=== PATIENT | male | born 1970 | race Caucasian/White ===

== ENCOUNTER → 2017-04-04 | Outpatient (CLI) | payer BC, OTHER | END | disposition home or self-care (01) | LOC: C.LABMFLN 09:23 | PROVIDERS: ATTEND Family Medicine | DX: J02.9 Acute pharyngitis, unspecified (principal) ==

== ENCOUNTER → 2017-04-24 | Outpatient (CLI) | payer BC ==
--- NOTE | 2017-04-24 17:58 | Exercise Stress Test Report ---
Exercise Stress Test Report Exercise Stress Test Report Date of Service: 04/24/2017 Exercise Stress Test Report Procedure: Exercise stress ECG Indications: Chest pain Ordering physician: Dr. Vicente Consent: Informed written consent was obtained. Protocol: Standard Richy Procedural details: Resting ECG demonstrated sinus rhythm at 66 bpm. Exercise ECG demonstrated no significant ST changes. No arrhythmia. There was no chest pain reported. Maximum heart rate was 148, representing 85% maximum predicted heart rate. Resting blood pressure was 99/66mmHg, with a maximum of 163/66 mmHg. Patient exercised 10 minutes and 2 seconds on standard Richy protocol, achieving 11.8 METS. Exercise was terminated due to fatigue. Impression: 1. Negative exercise ECG for ischemia at 85% MPHR. 2. Appropriate blood pressure response to exercise. 3. No arrhythmia. 4. No chest pain. 5. Good exercise tolerance.
== END | disposition home or self-care (01) ==
LOC: C.CPL 10:25
PROVIDERS: ATTEND Family Medicine
DX: R07.89 Other chest pain (principal)

== ENCOUNTER 2017-07-04 20:31 | Emergency (ER) | payer BC ==
[~2017-07-04] VITALS: Ht 172.7 cm; Wt 87.5 kg
[2017-07-04 20:40] VITALS: TEMP 36.6; Ht 172.7 cm; Wt 87.5 kg
--- NOTE | 2017-07-04 21:42 | DIAGNOSTIC IMAGING REPORT ---
HEAD WITHOUT CONTRAST (CT) CT DOSE: 788.63 mGycm HISTORY: Mental status change CHI w/ LOC TECHNIQUE: Multiaxial CT images of the head were performed without the use of intravenous contrast. A dose lowering technique was utilized adhering to the principles of ALARA. Comparison: None. Findings: The paranasal sinuses and mastoid air cells are clear. The calvarium and skull base are intact. The ventricles and sulci are within normal limits. There is no mass, hematoma, midline shift, or acute infarct. Impression: No acute intracranial abnormality. The above report was generated using voice recognition software. It may contain grammatical, syntax or spelling errors. Electronically signed by: Michael Domínguez M.D. 07/04/2017 9:41 PM Dictated Date/Time: 07/04/2017 9:40 PM
[2017-07-04 22:15] VITALS: BP 126/71; PULSE 70; O2SAT 95
--- NOTE | 2017-07-04 22:45 | EMERGENCY ROOM VISIT NOTE ---
History First contact with patient: 21:11 Chief Complaint: FALL Stated Complaint: FELL,GOT KNOCKED OUT History of Present Illness The patient is a 46 year old male who presents to the Emergency Room with complaints of injuries sustained after he slipped and fell while walking out of his garage. The patient and his were using a wheel [place] to move a generator they just purchased. The patient's had walked inside as the patient was walking out of the back of the garage. The patient reports slipping on the steps and falling, landing on his right buttock/lower back region, and hitting his head. The patient reports a loss of consciousness. The reports that he walked into the house and did not appear in any acute distress, but then started to ask what happened and what they did tonight. The reports that he asked this question several times before she thought the patient needed evaluation of his injuries. The patient now can recall everything that happened. The also reports that he is now back to normal. The patient denies any headache, nausea, blurred vision, neck pain or general back pain. He complains of pain over the right posterior pelvic/buttock region. He denies any significant pain with ambulation. He denies any paresthesias or numbness of the right lower extremity. He denies any shortness of breath, abdominal pain or other extremity injuries except for mild shoulder pain, although he reports that he can completely move the shoulder without significant discomfort. The patient denies any prior history of concussions. He rates his overall discomfort a 5 out of 10. Review of Systems 10 system review was performed and was negative except for pertinent positives and negatives as indicated in history of present illness Past Medical/Surgical History Medical Problems: (1) GERD (gastroesophageal reflux disease) (2) Hyperlipidemia, Unspecified Surgical Problems: (1) No history of previous surgery Family History FH: hypertension Social History Smoking Status: Never Smoker Alcohol Use: occasionally Marital Status: Housing Status: lives with family Occupation Status: employed Physical Exam Vital Signs Date Time Temp Pulse Resp B/P (MAP) Pulse Ox O2 Delivery O2 Flow Rate FiO2 07/04/17 22:15 70 18 126/71 95 07/04/17 20:40 36.6 82 18 120/78 95 Room Air Physical Exam CONSTITUTIONAL: Healthy and well nourished. Alert and oriented X 3 with positive affect. GCS 15. HEENT: Normocephalic, atraumatic. No scalp hematomas or lacerations. Pupils equal, round and reactive. No subconjunctival hemorrhage, epistaxis, hemotympanum, raccoon's eyes or Huang sign. NECK: Full active range of motion without discomfort. RESPIRATORY: Clear to auscultation bilaterally with no wheezing, crackles, rhonchi or stridor. CARDIOVASCULAR: Regular rate and rhythm with no murmurs, rubs or gallops. GASTROINTESTINAL: Bowel sounds present in all quadrants. Soft and nontender to palpation. MUSCULOSKELETAL: Examination shows minimal tenderness to palpation over the right shoulder region without any evidence for soft tissue edema, ecchymosis, abrasions or lacerations. The patient exhibits full active range of motion of the right shoulder without discomfort. Examination also shows minimal erythema to the right posterior pelvic region. He has no focal tenderness to palpation through the central lumbar spine, paraspinous muscles or SI joints. Pelvis stable with rock. Negative logroll of the right hip. Patient has no other tenderness to palpation through the central thoracolumbar spine or ribs. Distal pulses are intact. INTEGUMENTARY: No rash or other significant dermatologic conditions noted. NEUROLOGIC: No focal neurologic deficits noted. Normal finger to nose test. Negative pronator drift. No ataxia with ambulation. Medical Decision & Procedures ER Provider Diagnostic Interpretation: Noncontrast CT of the head does not show any evidence for intracranial bleed or skull fracture. Radiologist report is as follows: HEAD WITHOUT CONTRAST (CT) CT DOSE: 788.63 mGycm HISTORY: Mental status change CHI w/ LOC TECHNIQUE: Multiaxial CT images of the head were performed without the use of intravenous contrast. A dose lowering technique was utilized adhering to the principles of ALARA. Comparison: None. Findings: The paranasal sinuses and mastoid air cells are clear. The calvarium and skull base are intact. The ventricles and sulci are within normal limits. There is no mass, hematoma, midline shift, or acute infarct. Impression: No acute intracranial abnormality. ED Course Patient history and physical exam were performed. Nurse's notes were reviewed. Vital signs were reviewed and were normal. The patient's neurologic exam was normal. The patient was engaged in conversation with appropriate answers. The patient's reports that he is also back to normal without symptoms that he had at home. Because the patient did have a loss of consciousness, I did suggest a head CT scan which was normal. The patient has no other significant physical exam findings. He was encouraged to rest and avoid strenuous activities. An educational concussion handout was provided. He was encouraged to take ibuprofen or Tylenol as needed for pain. Intermittent happy occasionally place to areas of discomfort. He was instructed to follow-up with his family doctor as needed for any persistent concussion symptoms or back/ pelvic pain. He was instructed to seek further emergent reevaluation for any progressively worsening concussion symptoms. Both the patient and were happy with plan of care, voiced understanding of all discharge instructions, and the patient denied any significant pain at the conclusion of my exam. Medical Decision Head Trauma GCS Score: 15 Medication Reconcilliation Current Medication List: was personally reviewed by me Blood Pressure Screening Patient's blood pressure: Normal blood pressure Impression Primary Impression: Concussion with loss of consciousness Additional Impressions: Contusion of right shoulder Back contusion Fall from slip, trip, or stumble Departure Information Referrals Chace Vicente M.D. (PCP) Patient Instructions My [facility] Problem Qualifiers Primary Impression: Concussion with loss of consciousness Encounter type: initial encounter Qualified Codes: S06.0X9A - Concussion with loss of consciousness of unspecified duration, initial encounter Additional Impressions: Contusion of right shoulder Encounter type: initial encounter Qualified Codes: S40.011A - Contusion of right shoulder, initial encounter Back contusion Encounter type: initial encounter Laterality: right Qualified Codes: S20.221A - Contusion of right back wall of thorax, initial encounter Fall from slip, trip, or stumble Encounter type: initial encounter Qualified Codes: W01.0XXA - Fall on same level from slipping, tripping and stumbling without subsequent striking against object, initial encounter
== END 2017-07-04 22:15 | disposition home or self-care (01) ==
LOC: C.EDB 20:32 → C.EDC 22:15
DX: S06.0X9A Concussion with loss of consciousness of unspecified duration, initial encounter (principal); S40.011A Contusion of right shoulder, initial encounter; S20.221A Contusion of right back wall of thorax, initial encounter; W01.0XXA Fall on same level from slipping, tripping and stumbling without subsequent striking against object, initial encounter; Y93.89 Activity, other specified; Y92.008 Other place in unspecified non-institutional (private) residence as the place of occurrence of the external cause; K21.9 Gastro-esophageal reflux disease without esophagitis; E78.5 Hyperlipidemia, unspecified; Z82.49 Family history of ischemic heart disease and other diseases of the circulatory system

== ENCOUNTER → 2017-11-06 | Day surgery (SDC) | payer BC ==
[2017-10-29 08:09] VITALS: Ht 172.7 cm; Wt 86.8 kg
[~2017-11-06] VITALS: Ht 172.7 cm; Wt 86.8 kg
[~2017-11-06] MED LIST: ASPITAB71 PO; DICL-201 PO; EPP3/2 IM; OMEP40CA41 PO; SODIUM CHLORIDE 0.9% 500ML 500 ML IV ONE
[2017-11-06 13:13] VITALS: TEMP 36.9
--- NOTE | 2017-11-06 13:28 | Endo History and Physical ---
History & Physical Date of Service: Nov 06, 2017. Chief Complaint: Chronic GERD, dry cough Referring Physician: Dr. Chace Vicente History of Present Illness 46 yo CM who presents for EGD secondary to GERD and dry cough. Past Surgical History Hx Cardiac Surgery: No Hx Internal Defibrillator: No Hx Pacemaker: No Hx Abdominal Surgery: No Hx of Implantable Prosthesis: No Hx Post-Op Nausea and Vomiting: No Hx Cancer Surgery: No Hx Thoracic Surgery: No Hx Orthopedic: No Hx Urinary Tract Surgery: No Family History None Social History Smoking Status: Never Smoker Hx Substance Use: No Hx Alcohol Use: Yes (OCCASIONAL) Allergies Coded Allergies: BEE STING (Verified Allergy, Unknown, RASH AND/OR SWELLING, 10/29/17) Meloxicam (Verified Allergy, Unknown, "EXTREMITIES GOT HOT", 10/29/17) Uncoded Allergies: METAL JEWELRY (Adverse Reaction, Unknown, RASH, 10/29/17) Current Medications Reported Home Medications Medications Dose Route/Sig Max Daily Dose Days Date Category Dose Instructions [place] (Aspirin Effervescent) 1 Tab Tab 1 Tab PO UD PRN 10/29/17 Reported Epipen (Epinephrine) 0.3 Mg/0.3 Ml Inj 0.3 Mg IM UD PRN 10/29/17 Reported Voltaren (Diclofenac Sodium) 75 Mg Tabcr 75 Mg PO BID PRN 10/29/17 Reported WITH FOOD Prilosec (Omeprazole) 40 Mg Cap 40 Mg PO DAILY PRN 10/29/17 Reported Vital Signs Weight (Kilograms): 86.82 Height (Feet): 5 Height (Inches): 8 Date Time Temp Pulse Resp B/P (MAP) Pulse Ox O2 Delivery O2 Flow Rate FiO2 11/06/17 13:13 36.9 70 16 119/71 (87) 95 Room Air Physical Exam General Appearance: WD/WN, no apparent distress Respiratory/Chest: Auscultation: breath sounds normal Cardiovascular: Heart Auscultation: RRR Abdomen: Bowel Sounds: normal Inspection & Palpation: soft, non-distended, no tenderness, guarding & rebound Assessment and Plan Assessment: 46 yo CM who presents for EGD secondary to GERD and dry cough. Plan: Proceed with EGD.
--- NOTE | 2017-11-06 14:04 | GI REPORT ---
Procedure Date: 11/06/2017 1:26 PM Procedure: Upper GI endoscopy Indications: Gastro-esophageal reflux disease Medicines: Monitored Anesthesia Care Complications: No immediate complications. Estimated Blood Loss: Estimated blood loss: none. Procedure: Pre-Anesthesia Assessment: - Prior to the procedure, a History and Physical was performed, and patient medications and allergies were reviewed. The patient's tolerance of previous anesthesia was also reviewed. The risks and benefits of the procedure and the sedation options and risks were discussed with the patient. All questions were answered, and informed consent was obtained. Prior Anticoagulants: The patient has taken no previous anticoagulant or antiplatelet agents. ASA Grade Assessment: II - A patient with mild systemic disease. After reviewing the risks and benefits, the patient was deemed in satisfactory condition to undergo the procedure. After obtaining informed consent, the endoscope was passed under direct vision. Throughout the procedure, the patient's blood pressure, pulse, and oxygen saturations were monitored continuously. The scope was introduced through the mouth, and advanced to the second part of duodenum. The upper GI endoscopy was accomplished without difficulty. The patient tolerated the procedure well. Findings: The Z-line was irregular. Biopsies were taken with a cold forceps for histology. A small hiatal hernia was present. Localized mild inflammation characterized by erythema was found in the gastric antrum. Biopsies were taken with a cold forceps for histology. The examined duodenum was normal. Impression: - Z-line irregular. Biopsied. - Small hiatal hernia. - Gastritis. Biopsied. - Normal examined duodenum. Recommendation: - Resume previous diet. - Continue present medications. - Await pathology results. - Return to primary care physician as previously scheduled. Get Jefferson, DO 11/06/2017 2:03:43 PM This report has been signed electronically. Note Initiated On: 11/06/2017 1:26 PM I attest to the content of the Intraoperative Record and orders documented therein, exceptions below
--- NOTE | 2017-11-06 14:15 | Anesthesiology Progress Note ---
Anesthesia Post Op Note Date & Time Nov 06, 2017 at 14:15 Vital Signs Pain Intensity: 0 Vital Signs Past 12 Hours Date Time Temp Pulse Resp B/P (MAP) Pulse Ox O2 Delivery O2 Flow Rate FiO2 11/06/17 14:00 81 16 103/43 (63) 96 Room Air 11/06/17 13:13 36.9 70 16 119/71 (87) 95 Room Air Notes Mental Status: alert / awake / arousable, participated in evaluation Pt Amnestic to Procedure: Yes Nausea / Vomiting: adequately controlled Pain: adequately controlled Airway Patency, RR, SpO2: stable & adequate BP & HR: stable & adequate Hydration State: stable & adequate Anesthetic Complications: no major complications apparent
[2017-11-06 14:30] VITALS: BP 99/73; PULSE 63; O2SAT 96
--- NOTE | 2017-11-06 14:43 | Discharge Instructions ---
Endoscopy Patient Instructions Date / Procedure(s) Performed Nov 06, 2017. EGD Allergy Information Coded Allergies: BEE STING (Verified Allergy, Unknown, RASH AND/OR SWELLING, 10/29/17) Meloxicam (Verified Allergy, Unknown, "EXTREMITIES GOT HOT", 10/29/17) Uncoded Allergies: METAL JEWELRY (Adverse Reaction, Unknown, RASH, 10/29/17) Discharge Date / Findings Nov 06, 2017. Gastritis s/p biopsies Hiatal hernia Esophageal biopsies Medication Instructions OK to resume all medications today as prescribed Reported Home Medications Medications Dose Route/Sig Max Daily Dose Days Date Category Dose Instructions [place] (Aspirin Effervescent) 1 Tab Tab 1 Tab PO UD PRN 10/29/17 Reported Epipen (Epinephrine) 0.3 Mg/0.3 Ml Inj 0.3 Mg IM UD PRN 10/29/17 Reported Voltaren (Diclofenac Sodium) 75 Mg Tabcr 75 Mg PO BID PRN 10/29/17 Reported WITH FOOD Prilosec (Omeprazole) 40 Mg Cap 40 Mg PO DAILY PRN 10/29/17 Reported Provider Instructions Activity Restrictions - No exercising or heavy lifting for 24 hours. - Do not drink alcohol the day of the procedure. - Do not drive a car or operate machinery until the day after the procedure. - Do not make any important decisions or sign important papers in 24 hours after the procedure. Following Day: - Return to full activity which may include returning to work/school. Diet Start your diet with liquids and light foods (jello, soup, juice, toast). Then eat your usual diet if not nauseated. Treatment For Common After Affects For mild abdominal pain, bloating, or excessive gas: - Rest - Eat lightly - Lie on right side Follow-Up Information Follow-up with Dr. Chace Vicente as scheduled Anesthesia Information What You Should Know You have had a procedure that required some medicine to reduce anxiety and discomfort. This treatment is called moderate sedation. After receiving the treatment, you may be sleepy, but you will be able to breathe on your own. The effects of the treatment may last for several hours. Follow these instructions along with Activity/Diet recommendations noted above: * Do NOT do anything where dizziness or clumsiness would be dangerous. * Rest quietly at home today, then you can be up and about tomorrow. * Have a responsible person stay with you the rest of today. * You may have had an I.V. today. If so, you may take the dressing off later today. Recommendations Call your doctor if: * Trouble breathing * Continuous vomiting for more than 24 hours * Temperature above 101 degrees * Severe abdominal pain or bloating * Pain not relieved by pain medicine ordered * There is increased drainage or redness from any incision * A large amount of rectal bleeding greater than 2-3 tablespoons. (If you had a polyp/s removed or have hemorrhoids, a small amount of blood - from the rectum is to be expected.) * You have any unanswered questions or concerns. IN THE EVENT OF A SERIOUS EMERGENCY, GO TO THE NEAREST EMERGENCY ROOM Your discharge instructions were prepared by provider eGt Jefferson. Patient Instructions Signature Page Sergio Staton Patient (or Guardian) Signature/Date: I have read and understand the instructions given to me by my caregivers. Caregiver/RN/Doctor Signature/Date: The above-named patient and/or guardian has received patient instructions on this date. + Original Patient Signature Page (only) stays with chart. Please make copy for patient.
== END | disposition home or self-care (01) ==
LOC: C.GI 12:49
PROVIDERS: ATTEND Internal Medicine
DX: K21.0 Gastro-esophageal reflux disease with esophagitis (principal); K44.9 Diaphragmatic hernia without obstruction or gangrene; K29.50 Unspecified chronic gastritis without bleeding